=== PATIENT | female | born 1970 | race Caucasian/White ===

== ENCOUNTER 2019-01-09 17:45 | Observation (INO) | payer OTHER ==
[~2019-01-09] VITALS: Ht 154.9 cm; Wt 114.0 kg
[~2019-01-09 17:45] MED LIST: ALBU90I INH; Amoxicillin500 MG PO; Bactroban22 GM TOP; CYCL10 PO; Cortisporin Ear10 M1 RIGHTEAR; FLUO20 PO; HYDACE5; HYDPAM25 PO; IBUP800 PO; LORA1 PO; MELO7.5 PO; META800; META800 PO; OXYACE5T PO; Omeprazole20 M1 PO; Percocet 5-3251 EACH PO; Prednisone20 MG PO; QUET25; Roxicodone5 MG PO; SUCR1 PO; TOPI25 PO; VENL75ER PO; ZOLP10 PO
[2019-01-09 18:26] LABS: BASOPHILS ABSOLUTE AUTO 0.04 K/mm3 (0.00-0.23); BASOPHILS PERCENT AUTO 1 % (0-2); EOSINOPHILS ABSOLUTE AUTO 0.11 K/mm3 (0.00-0.68); EOSINOPHILS PERCENT AUTO 1 % (0-6); Hematocrit 42.1 % (33.0-51.0); Hemoglobin 13.8 g/dL (11.5-16.0); IMMATURE GRAN ABSOLUTE AUTO 0.03 K/mm3 (0.00-0.10); IMMATURE GRAN PERCENT AUTO 0 % (0-1); LYMPHOCYTES ABSOLUTE AUTO 2.09 K/mm3 (0.84-5.20); LYMPHOCYTES PERCENT AUTO 27 % (21-46); MONOCYTES PERCENT AUTO 8 % (4-13); Mean Corpuscular HGB 30.5 pg (26.0-34.0); Mean Corpuscular HGB Conc 32.8 g/dL (31.5-36.5); Mean Corpuscular Volume 93 fL (80-100); Mean Platelet Volume 11.4 fL (9.1-12.4); NEUTROPHILS ABSOLUTE AUTO 4.97 K/mm3 (1.96-9.15); NEUTROPHILS PERCENT AUTO 63 % (41-73); Platelet Count 314 K/mm3 (150-400); RDW Coefficient Variation 13.3 % (11.7-14.2); RDW Standard Deviation 46.1 fL (35.1-46.3); Red Blood Cell Count 4.53 M/mm3 (3.80-5.20); White Blood Cell Count 7.84 K/mm3 (4.00-11.30)
[2019-01-09] MEDS ORDERED: PROP10 PO (18:43)
[2019-01-09 18:54] LABS: Alanine Aminotransfer (ALT/SGP 24 U/L (12-78); Albumin, Blood 4.1 g/dL (3.4-5.0); Albumin/Globulin Ratio 1.2 (0.8-1.8); Alk Phos 82 U/L (50-136); Anion Gap 6 mmol/L (6-16); Aspartate Aminotrans (AST/SGOT 18 U/L (12-37); Bilirubin, Total 0.3 mg/dL (0.1-1.0); Blood Urea Nitrogen 8 mg/dL (8-24); CO2, Blood 26 mmol/L (21-32); Calcium, Blood 9.3 mg/dL (8.5-10.1); Chloride, Blood 109 mmol/L (98-108); Creatinine, Blood 0.62 mg/dL (0.40-1.00); Globulin, Blood 3.5 g/dL (2.2-4.0); Glomerular Filtration Rate >60 (60-); Glucose, Blood 91 mg/dL (70-99); Potassium, Blood 3.5 mmol/L (3.5-5.5); Sodium, Blood 141 mmol/L (136-145); Total Protein, Blood 7.6 g/dL (6.4-8.2)
--- NOTE | 2019-01-10 00:45 | NUR ---
TRANSFER REPORT FROM JULIUS WELDER FITTER APPRENTICE on PT being admitted with hypertensin and migrane headche with Aura and visual changes. Julius reports he gave 10 mg iv hydralazine for BP 214/96 and will recheck BP prior to coming to floor. PT had head ct reported neg and has carotid duplex and MRI of head ordered as well as echo. will be on Tele monitor. Await admission .
[2019-01-10 01:48] LABS: Source, Urine Clean Catch
[2019-01-10 01:51] LABS: Bilirubin, Urine Neg (Neg); Blood, Urine Neg (Neg); Glucose Qualitative, Urine Neg (Neg); Ketones, Urine Neg (Neg); Leukocyte Esterase, Urine Neg (Neg); Nitrite, Urine Neg (Neg); Protein, Urine Neg (Neg); Specific Gravity, Urine 1.015 (1.003-1.022); Urobilinogen, Urine NORM (Normal); pH, Urine 6.5 (5.0-8.0)
[2019-01-10 01:52] LABS: Appearance, Urine Clear (Clear); Color, Urine Yellow (P-Yellow)
[2019-01-10] MEDS ORDERED: NAPR220 PO (01:53)
[2019-01-10] MEDS ORDERED: ASPI325EC PO (01:56)
[2019-01-10] MEDS ORDERED: KRATOM PO (02:01)
--- NOTE | 2019-01-10 03:18 | NUR ---
48 year old PT being admitted with hypertensive urgency and BP 224/98 on admission. Rechecked BP manually 218/98 tele monitor NSR 70s to 80s. Rechecked BP again and was still 209/109 p 80 nsr. Contacted MD Galvez and to give 20 mg zestril now and 10 mg IV hydralazine. PT having diplopia with impovement only if she covers 1 eye. denies headache, last migrane reportedly 2 months ago. Will administer oral and IV antihypertensives and recheck BP. advance directives to chart. PT refuses blood or blood products for buddhist reasons.
[2019-01-10 04:54] LABS: Hematocrit 44.2 % (33.0-51.0); Hemoglobin 14.6 g/dL (11.5-16.0); Mean Corpuscular HGB 30.5 pg (26.0-34.0); Mean Corpuscular Volume 92 fL (80-100); Mean Platelet Volume 11.6 fL (9.1-12.4); Platelet Count 304 K/mm3 (150-400); RDW Coefficient Variation 13.5 % (11.7-14.2); RDW Standard Deviation 46.5 fL (35.1-46.3); Red Blood Cell Count 4.79 M/mm3 (3.80-5.20); White Blood Cell Count 8.81 K/mm3 (4.00-11.30)
[2019-01-10 05:36] LABS: Alanine Aminotransfer (ALT/SGP 23 U/L (12-78); Albumin, Blood 3.9 g/dL (3.4-5.0); Albumin/Globulin Ratio 1.1 (0.8-1.8); Alk Phos 80 U/L (50-136); Anion Gap 7 mmol/L (6-16); Aspartate Aminotrans (AST/SGOT 18 U/L (12-37); Bilirubin, Total 0.4 mg/dL (0.1-1.0); Blood Urea Nitrogen 8 mg/dL (8-24); Bun/Creatinine Ratio 14.1 (12.0-20.0); CO2, Blood 24 mmol/L (21-32); Calcium, Blood 9.1 mg/dL (8.5-10.1); Chloride, Blood 110 mmol/L (98-108); Creatinine, Blood 0.57 mg/dL (0.40-1.00); Globulin, Blood 3.4 g/dL (2.2-4.0); Glomerular Filtration Rate >60 (60-); Glucose, Blood 88 mg/dL (70-99); Potassium, Blood 3.3 mmol/L (3.5-5.5); Sodium, Blood 141 mmol/L (136-145); Total Protein, Blood 7.3 g/dL (6.4-8.2)
--- NOTE | 2019-01-10 15:53 | NUR ---
SHIFT SUMMARY PATIENT BP REMAINS HIGH. CONTINUING TO MONITOR AND MEDICATE PRN FOR BP. MEDICATION DOSAGES CHANGE. PATIENT ABLE TO MAKE HER NEEDS KNOWN. INDEPENDENT IN THE ROOM. NO ACUTE ISSUES NOTED ON TELE.
[2019-01-11 05:18] LABS: Anion Gap 6 mmol/L (6-16); Blood Urea Nitrogen 10 mg/dL (8-24); Bun/Creatinine Ratio 17.9 (12.0-20.0); CO2, Blood 24 mmol/L (21-32); Calcium, Blood 8.3 mg/dL (8.5-10.1); Chloride, Blood 109 mmol/L (98-108); Creatinine, Blood 0.56 mg/dL (0.40-1.00); Glomerular Filtration Rate >60 (60-); Glucose, Blood 88 mg/dL (70-99); Potassium, Blood 3.7 mmol/L (3.5-5.5); Sodium, Blood 139 mmol/L (136-145)
--- NOTE | 2019-01-11 05:41 | NUR ---
SHIFT SUMMARY PATIENT IS ALERT AND ORIENTED. USES CALL LIGHT APPROPRIATELY. INDEPENDENT IN ROOM. COMPLAINED OF HEADACHE TWICE THROUGHOUT THE NIGHT AND WAS MEDICATED ORDERED. PATIENTS BP WAS ELEVATED AT BEGINING OF SHIFT AND ADMINISTERED SCHEDULED BP MEDS A LITTLE EARLY, FOR I DID NOT WANT TO GIVE THE IV BP FOLLOWED BY ORAL- DISCUSSED THIS WITH CHARGE NURSE CLAUDETTE. NO NEW CHANGES THROUGHOUT THE NIGHT. VITALS STABLE.
[2019-01-11] MEDS ORDERED: HYDRA25 PO (13:16)
[2019-01-11] MEDS ORDERED: AMLO10 PO (13:16)
[2019-01-11] MEDS ORDERED: LISI20 PO (13:16)
--- NOTE | 2019-01-11 13:44 | NUR ---
SUMMARY/DISCHARGE PT DISCHARGED TO HOME, PT VERBALIZED UNDERSTANDING OF DISCHARGE INSTRUCTIONS REGARDING MEDICATIONS AND FOLLOW UP, PT DECLINED A WHEELCHAIR AND WAS ABLE TO AMBULATE SAFELY
== END 2019-01-11 13:44 | disposition home or self-care (01) ==
LOC: ER 17:45 → MEDS 17:46
PROVIDERS: Internal Medicine; Physician Assistant; ADMIT Internal Medicine
DX: I16.0 Hypertensive urgency (principal); I10 Essential (primary) hypertension; H53.2 Diplopia; F41.9 Anxiety disorder, unspecified; E87.6 Hypokalemia; Z79.899 Other long term (current) drug therapy
CPT/HCPCS: 36415; 70450; 70551; 80048; 80053; 81003; 85025; 85027; 93005; 93010; 93306; 93880; 96361; 96372; 96374; 96376; 99285-25; A9270; G0378; J0360; J1650; J7030

== ENCOUNTER → 2019-05-22 | Outpatient (CLI) | payer OTHER ==
[~2019-05-22] MED LIST changes: +AMLO10 PO; +ASPI325EC PO; +HYDRA25 PO; +KRATOM PO; +LISI20 PO; +NAPR220 PO; +PROP10 PO
[2019-05-22 19:59] LABS: BASOPHILS ABSOLUTE AUTO 0.04 K/mm3 (0.00-0.23); BASOPHILS PERCENT AUTO 1 % (0-2); EOSINOPHILS PERCENT AUTO 1 % (0-6); Hematocrit 43.5 % (33.0-51.0); Hemoglobin 14.1 g/dL (11.5-16.0); IMMATURE GRAN ABSOLUTE AUTO 0.02 K/mm3 (0.00-0.10); IMMATURE GRAN PERCENT AUTO 0 % (0-1); LYMPHOCYTES PERCENT AUTO 20 % (21-46); MONOCYTES ABSOLUTE AUTO 0.45 K/mm3 (0.16-1.47); MONOCYTES PERCENT AUTO 6 % (4-13); Mean Corpuscular HGB 30.9 pg (26.0-34.0); Mean Corpuscular HGB Conc 32.4 g/dL (31.5-36.5); Mean Corpuscular Volume 95 fL (80-100); NEUTROPHILS ABSOLUTE AUTO 5.17 K/mm3 (1.96-9.15); NEUTROPHILS PERCENT AUTO 72 % (41-73); Platelet Count 331 K/mm3 (150-400); RDW Coefficient Variation 12.5 % (11.7-14.2); RDW Standard Deviation 44.2 fL (35.1-46.3); Red Blood Cell Count 4.56 M/mm3 (3.80-5.20); White Blood Cell Count 7.18 K/mm3 (4.00-11.30)
[2019-05-22 20:15] LABS: Alanine Aminotransfer (ALT/SGP 39 U/L (12-78); Albumin, Blood 3.7 g/dL (3.4-5.0); Alk Phos 83 U/L (50-136); Anion Gap 5 mmol/L (6-16); Aspartate Aminotrans (AST/SGOT 26 U/L (12-37); Bilirubin, Total 0.5 mg/dL (0.1-1.0); Blood Urea Nitrogen 7 mg/dL (8-24); Bun/Creatinine Ratio 10.8 (12.0-20.0); CO2, Blood 30 mmol/L (21-32); Chloride, Blood 105 mmol/L (98-108); Creatinine, Blood 0.65 mg/dL (0.40-1.00); Free Thyroxine 0.97 ng/dL (0.70-1.60); Globulin, Blood 3.7 g/dL (2.2-4.0); Glomerular Filtration Rate >60 (60-); Glucose, Blood 83 mg/dL (70-99); Potassium, Blood 4.2 mmol/L (3.5-5.5); Sodium, Blood 140 mmol/L (136-145); Total Protein, Blood 7.4 g/dL (6.4-8.2)
== END ==
LOC: LAB SHORT 18:01 → LAB 18:01
PROVIDERS: Nurse Practitioner Family
DX: I10 Essential (primary) hypertension (principal); F41.8 Other specified anxiety disorders
CPT/HCPCS: 80053; 82306; 84439; 84443; 85025

== ENCOUNTER → 2019-08-07 | Outpatient (CLI) | payer OTHER ==
[2019-08-07 18:00] LABS: BASOPHILS ABSOLUTE AUTO 0.03 K/mm3 (0.00-0.23); BASOPHILS PERCENT AUTO 0 % (0-2); EOSINOPHILS PERCENT AUTO 1 % (0-6); Hematocrit 42.7 % (33.0-51.0); Hemoglobin 14.1 g/dL (11.5-16.0); IMMATURE GRAN ABSOLUTE AUTO 0.02 K/mm3 (0.00-0.10); IMMATURE GRAN PERCENT AUTO 0 % (0-1); LYMPHOCYTES ABSOLUTE AUTO 1.79 K/mm3 (0.84-5.20); LYMPHOCYTES PERCENT AUTO 22 % (21-46); MONOCYTES ABSOLUTE AUTO 0.55 K/mm3 (0.16-1.47); MONOCYTES PERCENT AUTO 7 % (4-13); Mean Corpuscular HGB 30.4 pg (26.0-34.0); Mean Corpuscular Volume 92 fL (80-100); NEUTROPHILS ABSOLUTE AUTO 5.71 K/mm3 (1.96-9.15); NEUTROPHILS PERCENT AUTO 70 % (41-73); Platelet Count 340 K/mm3 (150-400); RDW Coefficient Variation 12.5 % (11.7-14.2); RDW Standard Deviation 42.2 fL (35.1-46.3); Red Blood Cell Count 4.64 M/mm3 (3.80-5.20)
[2019-08-07 18:29] LABS: Albumin, Blood 3.6 g/dL (3.4-5.0); Albumin/Globulin Ratio 0.9 (0.8-1.8); Alk Phos 95 U/L (50-136); Anion Gap 6 mmol/L (6-16); Aspartate Aminotrans (AST/SGOT 38 U/L (12-37); Bilirubin, Total 0.5 mg/dL (0.1-1.0); Blood Urea Nitrogen 12 mg/dL (8-24); Bun/Creatinine Ratio 20.2 (12.0-20.0); CHOL/HDL RATIO 2.3; CO2, Blood 26 mmol/L (21-32); Calcium, Blood 9.4 mg/dL (8.5-10.1); Chloride, Blood 104 mmol/L (98-108); Cholesterol 188 mg/dL (50-200); Glomerular Filtration Rate >60 (60-); Glucose, Blood 91 mg/dL (70-99); HDL Cholesterol 82 mg/dL (>39); LDL Direct Measurement 74 mg/dL (0-130); LDL/HDL RATIO 0.9; Low Density Lipoprotein Chol 71 mg/dL (0-110); Sodium, Blood 136 mmol/L (136-145); Total Protein, Blood 7.6 g/dL (6.4-8.2); Triglycerides 176 mg/dL (30-160); Very Low Density Lipoprot Chol 35 mg/dL (6-32)
[2019-08-07 18:41] LABS: Alanine Aminotransfer (ALT/SGP 66 U/L (12-78)
== END | disposition home or self-care (01) ==
LOC: LAB 16:42 → LAB SHORT 16:42 → EDSTATUS 07-10 14:40 → LAB FUT 07-10 14:40
PROVIDERS: Nurse Practitioner Family
DX: E78.5 Hyperlipidemia, unspecified (principal); I10 Essential (primary) hypertension
CPT/HCPCS: 80053; 80061; 83721; 85025

== ENCOUNTER → 2019-10-11 | Outpatient (CLI) | payer OTHER ==
[2019-10-12 15:09] LABS: HPV 16 Negative (Negative); HPV 18 Negative (Negative); HPV OTHER HR TYPES Negative (Negative)
== END ==
LOC: LAB UCHC 12:36 → LAB SHORT 12:36
PROVIDERS: Registered Nurse Community Health
DX: Z12.4 Encounter for screening for malignant neoplasm of cervix (principal)
CPT/HCPCS: 87624; G0123

== ENCOUNTER → 2020-03-05 | Outpatient (CLI) | payer OTHER ==
[2020-03-05 17:56] LABS: BASOPHILS ABSOLUTE AUTO 0.05 K/mm3 (0.00-0.23); BASOPHILS PERCENT AUTO 1 % (0-2); EOSINOPHILS PERCENT AUTO 2 % (0-6); Hematocrit 42.4 % (33.0-51.0); Hemoglobin 13.7 g/dL (11.5-16.0); IMMATURE GRAN ABSOLUTE AUTO 0.01 K/mm3 (0.00-0.10); IMMATURE GRAN PERCENT AUTO 0 % (0-1); LYMPHOCYTES ABSOLUTE AUTO 1.54 K/mm3 (0.84-5.20); LYMPHOCYTES PERCENT AUTO 26 % (21-46); MONOCYTES ABSOLUTE AUTO 0.46 K/mm3 (0.16-1.47); MONOCYTES PERCENT AUTO 8 % (4-13); Mean Corpuscular HGB 29.8 pg (26.0-34.0); Mean Corpuscular HGB Conc 32.3 g/dL (31.5-36.5); Mean Corpuscular Volume 92 fL (80-100); Mean Platelet Volume 11.6 fL (9.1-12.4); NEUTROPHILS ABSOLUTE AUTO 3.74 K/mm3 (1.96-9.15); NEUTROPHILS PERCENT AUTO 63 % (41-73); Platelet Count 313 K/mm3 (150-400); RDW Coefficient Variation 13.2 % (11.7-14.2); RDW Standard Deviation 44.7 fL (35.1-46.3); Red Blood Cell Count 4.59 M/mm3 (3.80-5.20)
[2020-03-05 18:23] LABS: Alanine Aminotransfer (ALT/SGP 76 U/L (12-78); Albumin, Blood 3.8 g/dL (3.4-5.0); Alk Phos 94 U/L (50-136); Anion Gap 8 mmol/L (6-16); Aspartate Aminotrans (AST/SGOT 50 U/L (12-37); Bilirubin, Total 0.4 mg/dL (0.1-1.0); Blood Urea Nitrogen 14 mg/dL (8-24); CHOL/HDL RATIO 2.2; CO2, Blood 25 mmol/L (21-32); Calcium, Blood 9.2 mg/dL (8.5-10.1); Chloride, Blood 105 mmol/L (98-108); Cholesterol 197 mg/dL (50-200); Globulin, Blood 3.8 g/dL (2.2-4.0); Glucose, Blood 96 mg/dL (70-99); HDL Cholesterol 89 mg/dL (>39); LDL/HDL RATIO 0.9; Low Density Lipoprotein Chol 76 mg/dL (0-110); Potassium, Blood 3.9 mmol/L (3.5-5.5); Sodium, Blood 138 mmol/L (136-145); Total Protein, Blood 7.6 g/dL (6.4-8.2); Triglycerides 160 mg/dL (30-160); Very Low Density Lipoprot Chol 32 mg/dL (6-32)
[2020-03-05 18:27] LABS: Bun/Creatinine Ratio 26.6 (12.0-20.0); Creatinine, Blood 0.53 mg/dL (0.40-1.00); Glomerular Filtration Rate >60 (60-)
== END | disposition home or self-care (01) ==
LOC: LAB 16:40 → LAB SHORT 16:40
PROVIDERS: Nurse Practitioner Family
DX: Z11.59 Encounter for screening for other viral diseases (principal); E78.5 Hyperlipidemia, unspecified
CPT/HCPCS: 80053; 80061; 85025; 86803

== ENCOUNTER → 2022-11-29 | Outpatient (CLI) | payer OTHER ==
[2022-11-29 18:06] LABS: BASOPHILS ABSOLUTE AUTO 0.04 K/mm3 (0.00-0.23); BASOPHILS PERCENT AUTO 1 % (0-2); EOSINOPHILS ABSOLUTE AUTO 0.09 K/mm3 (0.00-0.68); EOSINOPHILS PERCENT AUTO 1 % (0-6); Hematocrit 43.4 % (33.0-51.0); IMMATURE GRAN ABSOLUTE AUTO 0.02 K/mm3 (0.00-0.10); IMMATURE GRAN PERCENT AUTO 0 % (0-1); LYMPHOCYTES ABSOLUTE AUTO 1.52 K/mm3 (0.84-5.20); LYMPHOCYTES PERCENT AUTO 23 % (21-46); MONOCYTES ABSOLUTE AUTO 0.46 K/mm3 (0.16-1.47); MONOCYTES PERCENT AUTO 7 % (4-13); Mean Corpuscular HGB 29.1 pg (26.0-34.0); Mean Corpuscular HGB Conc 32.3 g/dL (31.5-36.5); Mean Corpuscular Volume 90 fL (80-100); NEUTROPHILS ABSOLUTE AUTO 4.62 K/mm3 (1.96-9.15); NEUTROPHILS PERCENT AUTO 69 % (41-73); Platelet Count 329 K/mm3 (150-400); RDW Coefficient Variation 13.3 % (11.7-14.2); RDW Standard Deviation 44.6 fL (35.1-46.3); Red Blood Cell Count 4.81 M/mm3 (3.80-5.20); White Blood Cell Count 6.75 K/mm3 (4.00-11.30)
[2022-11-29 19:55] LABS: Alanine Aminotransfer (ALT/SGP 87 U/L (12-78); Albumin, Blood 3.9 g/dL (3.4-5.0); Alk Phos 105 U/L (50-136); Anion Gap 9 mmol/L (6-16); Aspartate Aminotrans (AST/SGOT 48 U/L (12-37); Bilirubin, Total 0.3 mg/dL (0.1-1.0); Blood Urea Nitrogen 11 mg/dL (8-24); Bun/Creatinine Ratio 18.7 (12.0-20.0); CHOL/HDL RATIO 1.9; CO2, Blood 24 mmol/L (21-32); Calcium, Blood 9.2 mg/dL (8.5-10.1); Chloride, Blood 105 mmol/L (98-108); Cholesterol 192 mg/dL (50-200); Creatinine, Blood 0.59 mg/dL (0.40-1.00); Globulin, Blood 3.8 g/dL (2.2-4.0); Glomerular Filtration Rate 107 (60-); Glucose, Blood 103 mg/dL (70-99); HDL Cholesterol 101 mg/dL (>39); LDL/HDL RATIO 0.6; Low Density Lipoprotein Chol 61 mg/dL (0-110); Potassium, Blood 3.9 mmol/L (3.5-5.5); Sodium, Blood 138 mmol/L (136-145); Total Protein, Blood 7.7 g/dL (6.4-8.2); Triglycerides 149 mg/dL (30-160); Very Low Density Lipoprot Chol 29 mg/dL (6-32)
== END | disposition home or self-care (01) ==
LOC: LAB 09:22 → LAB SHORT 09:22
PROVIDERS: Nurse Practitioner Family
DX: E78.5 Hyperlipidemia, unspecified (principal); E55.9 Vitamin D deficiency, unspecified; I10 Essential (primary) hypertension
CPT/HCPCS: 80053; 80061; 82306; 84443; 85025

== ENCOUNTER 2023-01-28 07:05 | Day surgery (SDC) | payer OTHER ==
[~2023-01-28] VITALS: Ht 154.9 cm; Wt 116.3 kg
[2023-01-28] MEDS ORDERED: KLONOPIN0.5 M9 PO (08:32)
[2023-01-28] MEDS ORDERED: TRAZ150T57 PO (08:32)
[2023-01-28] MEDS ORDERED: QUETIAPINE FUM10011 PO (08:32)
[2023-01-28] MEDS ORDERED: FLUT.05NI (08:32)
[2023-01-28] MEDS ORDERED: Inderal 20 mg T20 MG PO (08:34)
--- NOTE | 2023-01-28 10:16 | NUR ---
01/28/23 1016 Opal Tim PT HAD SOME PETECHIAE FROM THE 1010 DRAPE OVER THE TOURNIQUET, PACU AND SURGEON MADE AWARE. PT TOLERATED WELL
[2023-01-28 10:32] VITALS: BP 131/88
--- NOTE | 2023-01-28 11:12 | NUR ---
01/28/23 1112 Marisela Steele PT C/O 2/10 PAIN TO RIGHT WRIST. PT STATED PAIN WAS TOLERABLE, NO PAIN MEDICATIONS GIVEN. AT BEDSIDE FOR DISCHARGE INSTRUCTIONS. PT'S W[place]ING GIVEN TO . PT EXPRESSED READINESS TO GO HOME. PT CALM AND COOPERATIVE, AND PLEASANT. PT EATING/DRINKING WITH NO ISSUES.
== END 2023-01-28 11:04 | disposition home or self-care (01) ==
LOC: ORSCSDS 07:05
PROVIDERS: Orthopaedic Surgery
PROC: 01N50ZZ Release Median Nerve, Open Approach (ICD-10-PCS; principal; 2023-01-28 08:45)
PROC: 0JBH0ZX Excision of Left Lower Arm Subcutaneous Tissue and Fascia, Open Approach, Diagnostic (ICD-10-PCS; principal; 2023-01-28 08:45)
DX: G56.02 Carpal tunnel syndrome, left upper limb (principal); M67.432 Ganglion, left wrist; I10 Essential (primary) hypertension; E78.5 Hyperlipidemia, unspecified; G47.33 Obstructive sleep apnea (adult) (pediatric); J45.909 Unspecified asthma, uncomplicated; E66.01 Morbid (severe) obesity due to excess calories; Z68.42 Body mass index [BMI] 45.0-49.9, adult; F31.9 Bipolar disorder, unspecified; Z79.899 Other long term (current) drug therapy; F43.10 Post-traumatic stress disorder, unspecified
CPT/HCPCS: 88304; J0690; J1100; J1885; J2250; J2405; J2704; J2795; J3010; J7120

== ENCOUNTER 2024-10-09 07:22 | Day surgery (SDC) | payer OTHER ==
[2024-10-09] VITALS (12 sets, daily range): BP systolic 118–172; BP diastolic 73–99
[~2024-10-09] VITALS: Ht 152.4 cm; Wt 113.3 kg
[~2024-10-09 07:22] MED LIST changes: +FLUT.05NI; +Inderal 20 mg T20 MG PO; +KLONOPIN0.5 M9 PO; +LOSA50 PO; +QUETIAPINE FUM10011 PO; +TRAZ150T57 PO
[2024-10-09] MEDS ORDERED: VITAMIN D350 MC3 PO (08:07)
[2024-10-09] MEDS ORDERED: ALBU90OI INH (08:08)
--- NOTE | 2024-10-09 08:24 | NUR ---
Ambulatory in Day Surgery History, Chart, Medications and Allergies reviewed before start of procedure. Pre-Op teaching done. Pt verbalizes understanding.
[2024-10-09] MEDS ORDERED: Chlorhexidine Mouth Care 15 ML UDC MT SCH (08:25)
[2024-10-09] MEDS ORDERED: Lactated Ringer's 1,000 ML IV SCH ×2 (08:25→09:55)
[2024-10-09] MEDS ORDERED: CeFAZolin Sodium 2,000 MG in NS 100 ML IV SCH ×2 (08:25→18:00)
[2024-10-09] MEDS ORDERED: Acetaminophen 500 MG Tab PO SCH ×2 (08:25→16:00)
[2024-10-09] MEDS ORDERED: Ropivacaine 0.5% HCl/Pf 123.125 MG,EPINEPHrine HCL 0.25 MG,Ketorolac Tromethamine 15 MG... INFIL SCH (08:25)
[2024-10-09] MEDS ORDERED: OxyCODONE HCL 10 MG TABCR PO SCH (08:25)
[2024-10-09] MEDS ORDERED: Tranexamic Acid 100 ML IV SCH (08:28)
[2024-10-09] MEDS ORDERED: Midazolam HCl 1MG / ML 2ML Vial ONE (08:36)
[2024-10-09] MEDS ORDERED: FentaNYL Citrate 50 MCG/ML 2 ML Injection ONE ×2 (08:36→09:46)
[2024-10-09] MEDS ORDERED: propofoL 20 ML IV ONE (08:36)
[2024-10-09] MEDS ORDERED: propofoL 50 ML IV ONE ×2 (08:36)
[2024-10-09] MEDS ORDERED: CeFAZolin Sodium 2,000 MG VIAL ONE (08:41)
[2024-10-09] MEDS ORDERED: Dexamethasone Sod Phos 10 MG/ML 1ML VIAL ONE (09:21)
[2024-10-09] MEDS ORDERED: Ondansetron HCl 2 MG / ML 2ML Vial ONE (09:21)
[2024-10-09] MEDS ORDERED: Metoclopramide HCl 5MG / ML 2ML Vial ONE (09:21)
[2024-10-09] MEDS ORDERED: ClonazePAM 0.5 MG Tab PO PRN (09:45)
[2024-10-09] MEDS ORDERED: Fluticasone 0.05% Nasal Spray SCH (09:45)
[2024-10-09] MEDS ORDERED: OxyCODONE HCL 5 MG TAB PO PRN ×2 (09:55)
[2024-10-09] MEDS ORDERED: Magnesium Hydroxide Conc 10 ML UDC PO PRN (09:55)
[2024-10-09] MEDS ORDERED: Labetalol HCL 5 MG/ML 4ML Injection (Single Dose) ONE (09:55)
[2024-10-09] MEDS ORDERED: Metoclopramide HCl 5MG / ML 2ML Vial IV PRN (09:55)
[2024-10-09] MEDS ORDERED: Ondansetron HCl 2 MG / ML 2ML Vial IV PRN (09:55)
[2024-10-09] MEDS ORDERED: Bisacodyl 10 MG Supp PR PRN (10:00)
[2024-10-09] MEDS ORDERED: Promethazine HCl 25 MG Tab PO PRN (10:00)
[2024-10-09] MEDS ORDERED: FLU VACC TS2024-25(6MOS UP)/PF 45 MCG/0.5 ML SYRINGE IM ONE (10:05)
[2024-10-09] MEDS ORDERED: DiphenhydrAMINE HCL 25 MG Cap PO PRN (10:05)
[2024-10-09] MEDS ORDERED: Ketorolac Tromethamine 30mg Vial ONE ×2 (10:05→11:01)
[2024-10-09] MEDS ORDERED: Dexmedetomidine HCL 200 MCG / 2 ML ONE (10:06)
[2024-10-09] MEDS ORDERED: propofoL 100 ML IV ONE (10:06)
[2024-10-09] MEDS ORDERED: HYDROmorphone HCl 0.5 MG/0.5 ML SYR ONE ×2 (10:21→10:53)
[2024-10-09] MEDS ORDERED: HydrALAZINE HCl 20 MG / ML 1ML Vial ONE (10:31)
[2024-10-09] MEDS ORDERED: Albuterol HFA200 ACT/6.7 GM INH INH PRN (12:20)
[2024-10-09] MEDS ORDERED: HYDROmorphone HCl/Pf 1MG SYR IV PRN (12:25)
--- NOTE | 2024-10-09 16:42 | NUR ---
DISCHARGE PT AND HER SPOUSE WERE PROVIDED WITH WRITTEN AND VERBAL DISCHARGE INSTRUCTIONS, THEY REPORTED UNDERSTANDING. PRIOR TO DISCHARGE VSS, PAIN MANAGED, PT ABLE TO TOLERATE PO AND ABLE TO VOID. PT WORKED WITH PHYSICAL THERAPY, PER EULOGIO PHYSICAL THERAPIST PT MET ALL IN HOSPITAL GOALS. PT PROVIDED WITH CLEAN DRESSING. PT REPORTS SHE HAS HER PRESCRIPTION FOR PAIN MEDICATION AT HOME. PT INSTRUCTED TO TAKE POST-OP MEDICATIONS INSTRUCTED BY DR. POSADAS. PT ASSISTED OUT IN W/C AT 1637.
[2024-10-09] MEDS ORDERED: Ketorolac Tromethamine 15mg Vial IV SCH (18:00)
[2024-10-09] MEDS ORDERED: Apixaban 5 MG Tab PO SCH (21:00)
[2024-10-09] MEDS ORDERED: Docusate Sodium 100 MG Cap PO SCH (21:00)
[2024-10-09] MEDS ORDERED: TraZODone HCl 100 MG Tab PO SCH (21:00)
[2024-10-10] MEDS ORDERED: Cholecalciferol 1000 Unit Tablet (=25MCG) PO SCH (09:00)
[2024-10-10] MEDS ORDERED: Losartan Potassium 50 MG Tab PO SCH (09:00)
[2024-10-10] MEDS ORDERED: AmLODIPine Besylate 5 MG Tab PO SCH (09:00)
== END 2024-10-09 16:43 | disposition home or self-care (01) ==
LOC: ORSCMMR 07:22 → ORD 11:00 → SURS 11:59 → ORSCMMR 16:43 → ORD 10-11 15:00
PROVIDERS: Orthopaedic Surgery
PROC: 0SRC0JA Replacement of Right Knee Joint with Synthetic Substitute, Uncemented, Open Approach (ICD-10-PCS; principal; 2024-10-09 08:15)
DX: M17.11 Unilateral primary osteoarthritis, right knee (principal); I10 Essential (primary) hypertension; K21.9 Gastro-esophageal reflux disease without esophagitis; E66.01 Morbid (severe) obesity due to excess calories; Z68.42 Body mass index [BMI] 45.0-49.9, adult; F43.10 Post-traumatic stress disorder, unspecified; F31.9 Bipolar disorder, unspecified; Z79.899 Other long term (current) drug therapy
CPT/HCPCS: 73560-RT; 97110; 97116; 97161; 97530; A9270; C1713; C1776; J0171; J0360; J0690; J0735; J1100; J1171; J1885; J2250; J2405; J2704; J2765; J2795; J3010; J7120